=== PATIENT | male | born 2005 | race Caucasian/White ===

== ENCOUNTER → 2024-05-05 | Outpatient (REF) | payer SELFPAY, OTHER ==
[~2024-05-05] MED LIST: CYCL5TAB PO; TRAM50TA2 PO; [UNRECOGNIZED DRUG - CODE] PO; acutane
[2024-05-05 18:20] LABS: APPEARANCE, URINE CLEAR (CLEAR); BACTERIA, URINE AUTO NEGATIVE (NEGATIVE); BILIRUBIN, URINE AUTO NEGATIVE (NEGATIVE); BLOOD, URINE BLOOD NEGATIVE (NEGATIVE); COLOR, URINE COLORLESS (YELLOW); GLUCOSE, URINE (UA) AUTO NEGATIVE (NEGATIVE); KETONE, URINE AUTO NEGATIVE (NEGATIVE); LEUKOCYTE ESTERASE, URINE AUTO TRACE (NEGATIVE); NITRITE, URINE AUTO NEGATIVE (NEGATIVE); PROTEIN, URINE AUTO NEGATIVE (NEGATIVE); RBC, URINE AUTO 0 /HPF (0-3); SPECIFIC GRAVITY URINE AUTO 1.003 (1.002-1.035); SQUAMOUS EPITHELIAL CELL UR AU 0 /HPF (0-6); UROBILINOGEN, URINE AUTO 0.2 mg/dL (0.0-2.0); WBC, URINE AUTO 1 /HPF (0-3)
== END ==
LOC: M SMT 17:11
PROVIDERS: ATTEND Nurse Practitioner Family
DX: R31.9 Hematuria, unspecified (principal)

== ENCOUNTER → 2024-06-07 | Outpatient (REF) | payer OTHER ==
[~2024-06-07] MED LIST changes: -CYCL5TAB PO; +CYCL5TAB4 PO
[2024-06-07 19:05] LABS: APPEARANCE, URINE CLEAR (CLEAR); BILIRUBIN, URINE AUTO NEGATIVE (NEGATIVE); BLOOD, URINE BLOOD NEGATIVE (NEGATIVE); COLOR, URINE YELLOW (YELLOW); GLUCOSE, URINE (UA) AUTO NEGATIVE (NEGATIVE); KETONE, URINE AUTO NEGATIVE (NEGATIVE); LEUKOCYTE ESTERASE, URINE AUTO NEGATIVE (NEGATIVE); NITRITE, URINE AUTO NEGATIVE (NEGATIVE); PROTEIN, URINE AUTO NEGATIVE (NEGATIVE); SPECIFIC GRAVITY URINE AUTO 1.013 (1.002-1.035); UROBILINOGEN, URINE AUTO 0.2 mg/dL (0.0-2.0)
[2024-06-07 19:13] LABS: AMORPHOUS SEDIMENT SMALL (NEGATIVE); BACTERIA, URINE AUTO NEGATIVE (NEGATIVE); RBC, URINE AUTO 1 /HPF (0-3); SQUAMOUS EPITHELIAL CELL UR AU 0 /HPF (0-6); WBC, URINE AUTO 1 /HPF (0-3)
== END ==
LOC: M SMT 17:08
PROVIDERS: ATTEND Urology
DX: N35.919 Unspecified urethral stricture, male, unspecified site (principal)

== ENCOUNTER 2024-07-13 18:10 | Emergency (ER) | payer OTHER ==
[~2024-07-13] VITALS: Ht 170.2 cm; Wt 75.1 kg
[2024-07-13] MEDS ORDERED: IBUP-1114 PO (18:24)
[2024-07-13] MEDS ORDERED: ACET-907 PO (18:24)
[2024-07-13] MEDS ORDERED: DICL75TA PO (20:34)
[2024-07-13] MEDS: KETOROLAC 60MG 2ML VIAL IM ONE (20:43)
[2024-07-13 21:15] VITALS: BP 116/61; TEMP 98.3; O2SAT 97
== END 2024-07-13 21:17 | disposition home or self-care (01) ==
LOC: M ED 18:10
DX: M25.551 Pain in right hip (principal)
CPT/HCPCS: 96372; 99283; J1885

== ENCOUNTER 2025-07-15 20:41 | Emergency (ER) | payer OTHER ==
[~2025-07-15] VITALS: Ht 170.2 cm; Wt 88.0 kg
[~2025-07-15 20:41] MED LIST changes: +ACET-907 PO; +DICL75TA PO; +IBUP-1114 PO
[2025-07-15] MEDS: LIDOCAINE VISCOUS 2% SOLN 15 ML UDC PO ONE (23:47)
[2025-07-16 00:30] LABS: BASO # 0.1 10^3/uL (0.0-0.2); BASO % 0.4 % (0.0-1.0); EOS # 0.0 10^3/uL (0.0-0.5); EOS % 0.3 % (0.0-3.0); LYMPH # 3.6 10^3/uL (1.5-5.0); LYMPH % 30.9 % (24.0-44.0); MONO # 1.0 10^3/uL (0.0-0.8); MONO % 8.1 % (2.0-8.0); NEUTROPHILS # 7.0 10^3/uL (1.5-8.5); NEUTROPHILS % 59.9 % (36.0-66.0); PLATELET COUNT, AUTOMATED 240 10^3/uL (150-450)
[2025-07-16 01:05] LABS: C REACTIVE PROTEIN QUANTITATIV < 0.50 MG/DL (<1.0)
[2025-07-16 01:11] VITALS: O2SAT 98
[2025-07-16 01:15] VITALS: BP 116/60
[2025-07-16] MEDS ORDERED: BENZ1LOZ9 PO (01:25)
[2025-07-16 01:28] VITALS: TEMP 96.6
== END 2025-07-16 01:45 | disposition home or self-care (01) ==
LOC: M ED 22:02
DX: J04.0 Acute laryngitis (principal)